=== PATIENT | male | born 1980 | race Caucasian/White ===

== ENCOUNTER 2019-10-26 13:39 | Emergency (ER) | payer SELFPAY ==
[~2019-10-26] VITALS: Ht 160 cm; Wt 73.0 kg
[2019-10-26] MEDS ORDERED: SODIUM CHLORIDE 0.9% 1,000 ML IV ONE (15:27)
[2019-10-26 15:57] LABS: CHLORIDE 110 mEq/L (98-107)
[2019-10-26 16:00] LABS: BASOPHILS % 2.7 % (0.0-2.0); EOSINOPHILS % 1.5 % (0.0-5.0); HEMATOCRIT. 34.2 % (42.0-52.0); HEMOGLOBIN. 11.7 g/dL (14.0-18.0); LYMPHOCYTES % 34.9 % (20.0-50.0); MEAN CORPUSCULAR HEMOGLOBIN 34.5 pg (28.0-32.0); MEAN CORPUSCULAR VOLUME 101.2 fL (80.0-94.0); MEAN PLATELET VOLUME 10.4 fl (7.4-10.4); MONOCYTES % 4.4 % (2.0-8.0); NEUTROPHILS % 56.5 % (40.0-76.0); RED BLOOD CELL COUNT 3.38 mill/uL (4.7-6.1); RED CELL DISTRIBUTION WIDTH 14.5 % (11.6-14.6)
[2019-10-26 16:31] LABS: ETHANOL BLOOD 571 mg/dL
[2019-10-26 21:35] LABS: CLARITY URINE CLEAR (CLEAR); COLOR URINE YELLOW (YELLOW); KETONES URINE NEGATIVE (NEGATIVE); LEUKOCYTE ESTERASE URINE NEGATIVE (NEGATIVE); NITRITE URINE NEGATIVE (NEGATIVE); OCCULT BLOOD URINE NEGATIVE (NEGATIVE); PH URINE 6.5 (4.5-8.0); PROTEIN URINE NEGATIVE (NEGATIVE)
[2019-10-26 21:56] LABS: *AMPHETAMINES SCREEN URINE NEGATIVE (NEGATIVE); *BARBITURATES SCREEN URINE NEGATIVE (NEGATIVE)
[2019-10-26 21:57] LABS: *BENZODIAZEPINES SCREEN URINE NEGATIVE (NEGATIVE); *COCAINE SCREEN URINE NEGATIVE (NEGATIVE); CANNABINOID URINE SCREEN NEGATIVE (NEGATIVE); METHADONE URINE SCREEN NEGATIVE (NEGATIVE); OPIATES URINE SCREEN NEGATIVE (NEGATIVE); PHENCYCLIDINE URINE SCREEN NEGATIVE (NEGATIVE)
[2019-10-26] MEDS ORDERED: POTASSIUM CHLORIDE 20MEQ TABLET SR PO ONE (22:30)
[2019-10-26] MEDS ORDERED: CHLORDIAZEPOXIDE 25MG CAPSULE PO ONE (23:15)
[2019-10-27 09:20] VITALS: BP 105/55
[2019-10-29 10:34] LABS: PLATELET 44 x1000/uL (130-400)
== END 2019-10-27 09:29 | disposition home or self-care (01) ==
LOC: ER 13:39 → EDBD 13:39 → ER 10-27 09:29
DX: F10.229 Alcohol dependence with intoxication, unspecified (principal); Y90.8 Blood alcohol level of 240 mg/100 ml or more; Z59.0 Homelessness
CPT/HCPCS: 36415; 80053; 80305; 80307; 80320; 80329; 81003; 85025; 93005; 99285; J7030; G0480

== ENCOUNTER 2020-06-17 11:01 | Emergency (ER) | payer SELFPAY ==
[~2020-06-17] VITALS: Ht 172.7 cm; Wt 100.0 kg
[2020-06-17 12:18] LABS: BASOPHILS % 2.9 % (0.0-2.0); EOSINOPHILS % 3.8 % (0.0-5.0); LYMPHOCYTES % 23.6 % (20.0-50.0); MEAN CORPUSCULAR HEMOGLOBIN 33.4 pg (28.0-32.0); MEAN PLATELET VOLUME 9.4 fl (7.4-10.4); MONOCYTES % 13.5 % (2.0-8.0); NEUTROPHILS % 56.2 % (40.0-76.0); PLATELET 51 x1000/uL (130-400); RED CELL DISTRIBUTION WIDTH 17.3 % (11.6-14.6)
[2020-06-17 12:21] LABS: CHLORIDE 106 mEq/L (98-107)
[2020-06-17] MEDS ORDERED: SODIUM CHLORIDE 0.9% 1,000 ML IV ONE (12:30)
[2020-06-17 12:40] LABS: ETHANOL BLOOD 421 mg/dL
[2020-06-17] MEDS ORDERED: POTASSIUM CHLORIDE 20MEQ TABLET SR PO ONE (13:30)
[2020-06-17 16:45] VITALS: BP 110/60
== END 2020-06-17 17:07 | disposition home or self-care (01) ==
LOC: ER 11:09
DX: F10.129 Alcohol abuse with intoxication, unspecified (principal); D69.6 Thrombocytopenia, unspecified; E87.6 Hypokalemia; Y90.8 Blood alcohol level of 240 mg/100 ml or more
CPT/HCPCS: 36415; 70450; 80048; 80307; 80320; 80329; 85025; 93005; 96360; 96361; 99285; J7030; Z7610; G0480